=== PATIENT | male | born 1955 | race Asian ===

== ENCOUNTER 2016-08-24 12:30 | Day surgery (SDC) | payer OTHER ==
[~2016-08-24] VITALS: Ht 152.4 cm; Wt 64.1 kg
[2016-08-24 16:03] VITALS: Ht 152.4 cm; Wt 64.1 kg
[2016-08-24 16:14] VITALS: BP 140/74; PULSE 82; RESP 21
[2016-08-24] MEDS ORDERED: MIDAZOLAM 1 MG/ML 2 ML INJ ONE ×2 (16:42)
[2016-08-24] MEDS ORDERED: FENTAnyl 50 MCG/ML VIAL ONE (16:42)
[2016-08-24 16:55] VITALS: BP 128/82; PULSE 74; RESP 12
--- NOTE | 2016-08-24 18:27 | OPR ---
Date/Time of Note Date/Time of Note DATE: 08/24/16 TIME: 18:25 Operative Report Preoperative Diagnosis Colorectal cancer screening Postoperative Diagnosis 10 mm pedunculated polyp descending colon. Snared and retrieved Moderate size internal hemorrhoids Otherwise normal colonoscopy to cecum Operation/Procedure Performed Colonoscopy with snare polypectomy Surgeon: AILYN GUEVARA MD Anesthesia: other (Moderate sedation) Estimated Blood Loss: none Specimens Descending colon polyp Complications: None AILYN GUEVARA MD Aug 24, 2016 18:27
== END 2016-08-24 17:27 | disposition home or self-care (01) ==
LOC: GIL 12:30
PROVIDERS: ATTEND Internal Medicine Gastroenterology
DX: Z12.11 Encounter for screening for malignant neoplasm of colon (principal); D12.4 Benign neoplasm of descending colon; K64.8 Other hemorrhoids; E78.5 Hyperlipidemia, unspecified
CPT/HCPCS: 45380; 88305; J2250; J3010; Z7610